=== PATIENT | female | born 1990 | race Caucasian/White ===

== ENCOUNTER 2016-09-11 14:50 | Outpatient (CLI) | payer OTHER ==
[2016-09-11 15:17] LABS: #Basophils 0.1 thou/uL (0.0-0.2); #Eosinphils 0.3 thou/uL (0.0-0.7); #Lymphocytes 1.8 thou/uL (1.20-3.40); #Monocytes 0.5 thou/uL (0.11-0.59); #Neutrophils 3.7 thou/uL (1.40-6.50); %Basophils 1.2 % (0.0-1.0); %Eosinophils 4.9 % (0.0-10.0); %Lymphocytes 28.5 % (21.0-51.0); %Monocytes 8.2 % (0.0-10.0); %Neutrophils 57.3 % (42.0-75.0); Hemoglobin 13.3 g/dL (12.0-16.0); Mean Corpuscular HGB CONC 34.8 g/dL (32.0-36.0); Mean Corpuscular Hemoglobin 29.9 pg (27.0-31.0); Mean Corpuscular Volume 85.9 fl (81.0-99.0); Mean Platelet Volume 9.1 fL (7.4-10.4); Platelet Count 185 thou/uL (130-400); RBC Distribution Width 11.5 % (11.5-14.5); Red Blood Cell (RBC) Count 4.45 mill/uL (4.20-5.40); White Blood Cell (WBC) Count 6.4 thou/uL (4.8-10.8)
[2016-09-11 15:33] LABS: Hemoglobin A1c 4.6 % (4.0-6.0)
[2016-09-11 15:39] LABS: ALT (SGPT) 12 U/L (0-55); AST (SGOT) 18 U/L (5-34); Albumin 4.4 g/dL (3.5-5.0); Alkaline Phosphatase 58 U/L (40-150); Anion Gap 14 mmol/L (10-20); BUN (Urea Nitrogen) 15 mg/dL (7.0-18.7); Bilirubin, Total 0.4 mg/dL (0.2-1.2); Calc. Creatinine Clearance 0 mL/min (70-130); Calcium 9.2 mg/dL (7.8-10.44); Carbon Dioxide 27 mmol/L (22-29); Cardiac Risk 2.8 (Less than 4.5); Chloride 106 mmol/L (98-107); Cholesterol 116 mg/dL (< 200 Desired); Estimated GFR-MDRD Greater than 90; Globulin 2.6 g/dL (2.4-3.5); Glucose 83 mg/dL (70-105); HDL Cholesterol 42 mg/dL (>60 Neg Risk); LDL Cholesterol, Calculated 52 mg/dL; Potassium 3.7 mmol/L (3.5-5.1); Sodium 143 mmol/L (136-145); Triglycerides 111 mg/dL (Less than 150)
[2016-09-11 16:21] LABS: Thyroid Stimulating Hormone 0.8899 uIU/mL (0.35-4.94); Vitamin D, 25 Hydroxy 39.1 ng/mL (> 30.0)
[2016-09-12 18:27] LABS: HBSAg Index 0.21 S/CO (0-0.99); HIV (1/2) Antibody/Antigen Non-Reactive (NonReactive); HIV 1/2 INDEX 0.07 S/CO (<1.00); Hep A IgM AB Non-Reactive (NonReactive); Hep A IgM S/CO 0.11 S/CO (0-0.79); Hep B Surf Ag Non-Reactive S/CO (NonReactive); Hep C IgG Ab Non-Reactive (NonReactive); Hep C Index 0.24 S/CO (0-0.79); Hepatitis B Core IGM Abs Non-Reactive (NonReactive)
[2016-09-14 17:27] LABS: Chlamydia by PCR Not Detected (NotDetected); GC by PCR Not Detected (NotDetected)
[2016-09-18 02:11] LABS: HSV-2 IgG Type Specific Less than 0.91 index (0.00-0.90)
== END 2016-09-11 14:51 | disposition home or self-care (01) ==
LOC: MADLABBHPM 14:50
PROVIDERS: ATTEND Family Medicine
DX: Z00.01 Encounter for general adult medical examination with abnormal findings (principal); Z20.2 Contact with and (suspected) exposure to infections with a predominantly sexual mode of transmission
CPT/HCPCS: 36415; 80053; 80061; 80074; 82306; 83036; 84443; 85025; 86592; 86694; 86695; 86696; 87389; 87480; 87491; 87510; 87591; 87660

== ENCOUNTER 2016-10-20 12:14 | Emergency (ER) | payer OTHER ==
[2016-10-20] MEDS ORDERED: Neomycin/Polymyxin/HC Otic Solution 10 ML BOT ONE (13:03)
[2016-10-20] MEDS ORDERED: AMOXicillin 250 MG CAP ONE (13:03)
== END 2016-10-20 13:10 | disposition home or self-care (01) ==
LOC: MADERS 12:14
DX: H66.91 Otitis media, unspecified, right ear (principal); J30.2 Other seasonal allergic rhinitis; H60.8X1 Other otitis externa, right ear; F17.210 Nicotine dependence, cigarettes, uncomplicated
CPT/HCPCS: 99282